=== PATIENT | male | born 1960 | race Caucasian/White ===

== ENCOUNTER 2023-01-16 09:47 | Emergency (ER) | payer BC ==
[~2023-01-16] VITALS: Ht 165.1 cm; Wt 68.0 kg
[2023-01-16] MEDS ORDERED: MORPHINE SULFATE INJ 2 MG/ML DISP.SYRIN IV ONE (10:00)
[2023-01-16] MEDS ORDERED: ONDANSETRON HCL/PF 4 MG/2 ML VIAL IVP ONE (10:00)
[2023-01-16] MEDS ORDERED: IV NS 0.9% 1,000 ML BAG IV ONE (10:00)
--- NOTE | 2023-01-16 10:05 | NUR ---
TO CT SCAN
--- NOTE | 2023-01-16 10:05 | NUR ---
RECEIVED PT 63 YRS MALE CAME FORM HOME C/O EPGASTRIC PAIN FOR 3 DAYS NO SOB RESOLVE NOW CHEST PAIN
--- NOTE | 2023-01-16 10:20 | NUR ---
INSERTED ANGO CATHETER G 20 ON LT AC BLOOD DROW AND SENT TO LAB
[2023-01-16] MEDS ORDERED: ONDANSETRON HCL/PF 4 MG/2 ML VIAL ONE (10:24)
[2023-01-16] MEDS ORDERED: MORPHINE SULFATE INJ 4 MG/ML DISP.SYRIN ONE (10:24)
[2023-01-16 10:54] LABS: BASOPHILS # (AUTO) 0.1 K/uL (0.0-0.2); BASOPHILS % (AUTO) 1.6 % (0.0-2.0); EOSINOPHILS % (AUTO) 4.7 % (0.0-6.0); HEMATOCRIT 46 % (39-51); HEMOGLOBIN 15.3 g/dL (13.5-17.5); LYMPHOCYTES # (AUTO) 1.2 K/uL (0.8-4.8); LYMPHOCYTES % (AUTO) 29.6 % (20.0-44.0); MEAN CORPUSCULAR HGB CONC 33 g/dl (31.0-36.0); MEAN CORPUSCULAR VOLUME 90 fL (80-96); MONOCYTES # (AUTO) 0.3 K/uL (0.1-1.30); MONOCYTES % (AUTO) 6.9 % (2.0-12.0); NEUTROPHILS # (AUTO) 2.3 K/uL (1.8-8.9); NEUTROPHILS % (AUTO) 57.2 % (43.0-81.0); PLATELET COUNT (AUTO) 198 K/uL (150-450); RED BLOOD CELL COUNT(AUTO) 5.11 MIL/uL (4.5-6.0); WHITE BLOOD COUNT (AUTO) 3.9 K/uL (4.3-11.0)
--- NOTE | 2023-01-16 11:05 | NUR ---
David [email or web address] in [facility] - 01/16/23 at [address] SCAN
--- NOTE | 2023-01-16 11:20 | NUR ---
UA SENT TO LAB
--- NOTE | 2023-01-16 11:30 | NUR ---
David marshall in [facility] - 01/16/23 at 1148 by TERA UA SENT TO LAB
[2023-01-16 11:37] LABS: POTASSIUM 3.8 mmol/L (3.5-5.1)
[2023-01-16 11:38] LABS: ALBUMIN 4.2 g/dL (3.4-5.0); TOTAL PROTEIN, SERUM 7.2 g/dL (6.4-8.2)
[2023-01-16 11:40] LABS: BILIRUBIN,DIRECT 0.2 mg/dL (0.0-0.2)
[2023-01-16 11:41] LABS: CALCIUM, SERUM 8.9 mg/dL (8.5-10.1)
[2023-01-16 11:42] LABS: BILIRUBIN,TOTAL 0.8 mg/dL (0.2-1.0)
--- NOTE | 2023-01-16 11:48 | NUR ---
ABDOMINALE US AT BED SIDE
[2023-01-16 11:52] LABS: BILIRUBIN,URINE NEGATIVE (NEGATIVE); COLOR,URINE YELLOW (YELLOW); LEUKOCYTE ESTERASE ,URINE NEGATIVE (NEGATIVE); NITRITE, URINE NEGATIVE (NEGATIVE); PH,URINE 6.5 (5.0-8.0); PROTEIN,URINE NEGATIVE (NEGATIVE); UGLUCOSE NEGATIVE (NEGATIVE); UROBILINOGEN,URINE 0.2 EU/dL (0.2)
[2023-01-16] MEDS ORDERED: LIDOCAINE VISCOUS 2% UD 15 ML UDC MM ONE (12:00)
[2023-01-16] MEDS ORDERED: MAG HYDROX/AL HYDROX/SIMETH 30 ML UDC PO ONE (12:00)
[2023-01-16] MEDS ORDERED: FAMOTIDINE/PF INJ 20 MG/2 ML VIAL IV ONE ×2 (12:00→12:13)
[2023-01-16] MEDS ORDERED: LIDOCAINE VISCOUS 2% UD 15 ML UDC ONE (12:12)
[2023-01-16] MEDS ORDERED: MAG HYDROX/AL HYDROX/SIMETH 30 ML UDC ONE (12:12)
--- NOTE | 2023-01-16 12:53 | NUR ---
RESTING AT THIS TIME
--- NOTE | 2023-01-16 13:35 | NUR ---
DINESES CHEST PAIN
[2023-01-16] MEDS ORDERED: ONDA4TAB5 PO (14:08)
[2023-01-16] MEDS ORDERED: FAMO-131 PO (14:08)
--- NOTE | 2023-01-16 14:23 | NUR ---
Patient discharged to home in stable condition. Written and verbal after care instructions given. Patient verbalizes understanding of instruction.
--- NOTE | 2023-01-16 14:25 | NUR ---
IV removed. Catheter intact and site benign. Pressure and 4x4 applied to site. No bleeding noted.
[2023-01-16 14:37] VITALS: BP 151/82
== END 2023-01-16 14:37 | disposition home or self-care (01) ==
LOC: ER 09:51
DX: R07.89 Other chest pain (principal); R10.13 Epigastric pain; R11.2 Nausea with vomiting, unspecified; K21.9 Gastro-esophageal reflux disease without esophagitis; F41.9 Anxiety disorder, unspecified
CPT/HCPCS: 99285; 74176; 96374; 76705; 96375; 96361; 93005; 85025; 80048; 83690; 80076; 81003; 36415; 84484 ×2; J2270; J3490; J2405; J7030